=== PATIENT | male | born 1980 | race Caucasian/White ===

== ENCOUNTER 2021-10-23 14:32 | Emergency (ER) | payer MEDICAID, OTHER ==
[~2021-10-23] VITALS: Ht 182.9 cm; Wt 99.8 kg
[2021-10-23 17:02] VITALS: BP 146/95
== END 2021-10-23 17:04 | disposition home or self-care (01) ==
LOC: ER 14:32
DX: S93.401A Sprain of unspecified ligament of right ankle, initial encounter (principal); X58.XXXA Exposure to other specified factors, initial encounter; Y93.89 Activity, other specified; Y92.89 Other specified places as the place of occurrence of the external cause; Y99.8 Other external cause status
CPT/HCPCS: 73610

== ENCOUNTER 2022-04-21 16:15 | Emergency (ER) | payer MEDICAID ==
[~2022-04-21] VITALS: Ht 182.9 cm; Wt 92.1 kg
[2022-04-21] MEDS ORDERED: cefTRIAXone SOD 1,000 MG VL IM ONE (19:15)
[2022-04-21] MEDS ORDERED: KETOROLAC TROMETH 30 MG/ML 1ML VIAL IM ONE (19:15)
[2022-04-21] MEDS ORDERED: IBUP800T26 PO (20:01)
[2022-04-21] MEDS ORDERED: AMOX-277 PO (20:01)
[2022-04-21 21:53] VITALS: BP 146/99
== END 2022-04-21 21:44 | disposition home or self-care (01) ==
LOC: ER 16:20
DX: K04.7 Periapical abscess without sinus (principal)
CPT/HCPCS: 96372; 99284; J0696; J1885

== ENCOUNTER 2022-05-30 23:24 | Emergency (ER) | payer MEDICAID ==
[~2022-05-30] VITALS: Ht 182.9 cm; Wt 94.3 kg
[~2022-05-30 23:24] MED LIST: AMOX-277 PO; IBUP800T26 PO
[2022-05-31 04:26] VITALS: BP 118/87
[2022-05-31] MEDS ORDERED: KETOROLAC TROMETH 60MG/2ML VIAL IM ONE (04:45)
== END 2022-05-31 05:04 | disposition home or self-care (01) ==
LOC: ER 23:24
DX: M25.571 Pain in right ankle and joints of right foot (principal)
CPT/HCPCS: 96372; 99283; J1885

== ENCOUNTER 2022-08-25 04:23 | Emergency (ER) | payer MEDICAID ==
[~2022-08-25] VITALS: Ht 182.9 cm; Wt 81.8 kg
[2022-08-25 04:31] VITALS: BP 133/89
[2022-08-25] MEDS ORDERED: DOXY-286 PO ×4 (04:53→04:54)
[2022-08-25] MEDS ORDERED: PRED20TA2 PO ×3 (04:53→04:54)
[2022-08-25] MEDS ORDERED: AZITTAB PO (05:08)
== END 2022-08-25 05:26 | disposition home or self-care (01) ==
LOC: ER 04:23
DX: J20.9 Acute bronchitis, unspecified (principal); F17.210 Nicotine dependence, cigarettes, uncomplicated; F12.10 Cannabis abuse, uncomplicated
CPT/HCPCS: 71045

== ENCOUNTER 2023-06-20 15:08 | Emergency (ER) | payer MEDICAID ==
[~2023-06-20] VITALS: Ht 182.9 cm; Wt 98.3 kg
[~2023-06-20 15:08] MED LIST changes: -AMOX-277 PO; +AMOX875T4 PO; +AZITTAB PO; +IBUP-1455 PO; -IBUP800T26 PO; +PRED20TA2 PO
[2023-06-20 17:10] LABS: Basophils # (auto) 0.1 10 ^3/uL (0-0.2); Basophils % (auto) 0.5 % (0.0-2.0); Eosinophils # (auto) 0.3 10 ^3/uL (0-0.8); Eosinophils % (auto) 3.2 % (0.0-7.0); Hematocrit 41.8 % (41.0-53.0); Lymphocytes # (auto) 3.1 10 ^3/uL (0.4-5.4); Lymphocytes % (auto) 31.9 % (10.0-50.0); Mean Corpuscular Hemoglobin 31.1 pg (28.0-32.0); Mean Corpuscular Hgb Conc. 33.5 g/dL (32.0-36.0); Mean Corpuscular Volume 92.8 fL (80.0-100.0); Monocytes # (auto) 1.5 10 ^3/uL (0-1.3); Monocytes % (auto) 16.1 % (0.0-12.0); Neutrophils # (auto) 4.6 10 ^3/uL (1.6-8.6); Neutrophils % (auto) 48.3 % (37.0-80.0); Nucleated Red Blood Cells % 0.1 %; Red Cell Distribution Width 13.5 % (11.8-14.3); White Blood Cell 9.6 10^3/uL (4.4-10.8)
[2023-06-20 17:29] LABS: Alanine Aminotransferase 85 U/L (7-40); Albumin 4.5 g/dL (3.2-4.8); Alkaline Phosphatase 117 U/L (46-116); Anion Gap 3 (5-15); Aspartate Aminotransferase 62 U/L (13-40); BUN/Creatinine Ratio 11.9 (10.0-20.0); Bilirubin, Total 0.4 mg/dL (0.2-1.0); Blood Urea Nitrogen 10 mg/dL (9-23); Calcium 9.2 mg/dL (8.7-10.4); Carbon Dioxide 32 mmol/L (20-30); Chloride 102 mmol/L (98-107); Glucose 94 mg/dL (74-106); Potassium 4.2 mmol/L (3.5-5.1); Sodium 137 mmol/L (136-145); Total Protein 8.7 g/dL (5.7-8.2)
[2023-06-20] MEDS ORDERED: FLUCONAZOLE 200MG/100ML 100 ML IV ONE (17:30)
[2023-06-20] MEDS ORDERED: cefTRIAXone 1GM/50ML D5W 50 ML IV ONE (17:30)
[2023-06-20] MEDS ORDERED: SODIUM CHLORIDE 0.9% 1,000 ML IV ONE (17:30)
[2023-06-20 18:24] LABS: Urine Bacteria NONE SEEN /hpf (None Seen); Urine Blood Negative /uL (Negative); Urine Clarity Clear (Clear); Urine Color Yellow (Yellow); Urine Mucus FEW (None Seen); Urine Protein, UAD Negative (Negative); Urine Specific Gravity 1.025 (1.001-1.035); Urine Urobilinogen Normal (Negative); Urine WBC <1 /hpf (0 - 3); Urine pH 5.5 (5.0-8.0)
[2023-06-20] MEDS ORDERED: [UNRECOGNIZED DRUG - CODE] EXT (19:17)
[2023-06-20] MEDS ORDERED: FLUC200T PO (19:17)
[2023-06-20] MEDS ORDERED: DOXY100C PO (19:17)
[2023-06-20 22:16] VITALS: BP 134/96; PULSE 90; RESP 18; TEMP 98.5; O2SAT 96
== END 2023-06-20 23:28 | disposition home or self-care (01) ==
LOC: ER 15:08
DX: L03.116 Cellulitis of left lower limb (principal); L03.115 Cellulitis of right lower limb; B35.3 Tinea pedis; R74.8 Abnormal levels of other serum enzymes; F17.210 Nicotine dependence, cigarettes, uncomplicated; F12.10 Cannabis abuse, uncomplicated
CPT/HCPCS: 36415; 80053; 81001; 85025; 96365; 96368; 99284; J0696; J1450

== ENCOUNTER 2023-08-08 16:37 | Inpatient (IN) | payer MEDICAID ==
[~2023-08-08] VITALS: Ht 182.9 cm; Wt 95.9 kg
[~2023-08-08 16:37] MED LIST changes: +DOXY100C PO; +FLUC200T PO; +[UNRECOGNIZED DRUG - CODE] EXT
[2023-08-08] MEDS: VANCOMYCIN 1GM/200ML 200 ML IV ONE (17:30)
[2023-08-08 20:32] LABS: Basophils # (auto) 0.1 10 ^3/uL (0-0.2); Basophils % (auto) 0.5 % (0.0-2.0); Eosinophils # (auto) 0.3 10 ^3/uL (0-0.8); Eosinophils % (auto) 2.8 % (0.0-7.0); Hematocrit 45.1 % (41.0-53.0); Hemoglobin 14.8 g/dL (13.5-17.5); Lymphocytes # (auto) 3.3 10 ^3/uL (0.4-5.4); Lymphocytes % (auto) 32.2 % (10.0-50.0); Mean Corpuscular Hemoglobin 30.6 pg (28.0-32.0); Mean Corpuscular Hgb Conc. 32.8 g/dL (32.0-36.0); Mean Corpuscular Volume 93.5 fL (80.0-100.0); Monocytes # (auto) 1.2 10 ^3/uL (0-1.3); Monocytes % (auto) 11.7 % (0.0-12.0); Neutrophils # (auto) 5.4 10 ^3/uL (1.6-8.6); Neutrophils % (auto) 52.8 % (37.0-80.0); Nucleated Red Blood Cells % 0.1 %; Red Blood Cells 4.82 10^6/uL (4.5-5.90); Red Cell Distribution Width 13.3 % (11.8-14.3); White Blood Cell 10.1 10^3/uL (4.4-10.8)
[2023-08-08 20:40] LABS: Chloride 105 mmol/L (98-107); Potassium 4.4 mmol/L (3.5-5.1); Sodium 138 mmol/L (136-145)
[2023-08-08 20:41] LABS: Anion Gap 4 (5-15); Carbon Dioxide 29 mmol/L (20-30)
[2023-08-08 20:42] LABS: Calcium 9.1 mg/dL (8.7-10.4)
[2023-08-08 20:47] LABS: BUN/Creatinine Ratio 15.7 (10.0-20.0); Blood Urea Nitrogen 14 mg/dL (9-23); Glucose 92 mg/dL (74-106)
[2023-08-08] MEDS ORDERED: DOCUSATE SOD 100 MG CAP PO PRN (21:30)
[2023-08-08] MEDS ORDERED: VANCOMYCIN PER PHARMACY 0 MG IV SCH (21:30)
[2023-08-08] MEDS ORDERED: ONDANSETRON HCL 4 MG/2 ML VIAL IV PRN (21:30)
[2023-08-08] MEDS ORDERED: ACETAMINOPHEN 325 MG TAB PO PRN (21:30)
[2023-08-08] MEDS: SODIUM CHLORIDE 0.9% 1,000 ML IV SCH (22:10)
[2023-08-08] MEDS ORDERED: MORPHINE SULFATE INJ 2 MG/ml SYRG IV PRN (22:30)
[2023-08-08] MEDS ORDERED: NITROGLYCERIN 0.4 MG SL TAB SL PRN (22:30)
[2023-08-09 06:55] LABS: Basophils # (auto) 0 10 ^3/uL (0-0.2); Basophils % (auto) 0.5 % (0.0-2.0); Eosinophils # (auto) 0.2 10 ^3/uL (0-0.8); Eosinophils % (auto) 2.3 % (0.0-7.0); Hematocrit 42.6 % (41.0-53.0); Hemoglobin 14.2 g/dL (13.5-17.5); Lymphocytes # (auto) 2.1 10 ^3/uL (0.4-5.4); Lymphocytes % (auto) 23.5 % (10.0-50.0); Mean Corpuscular Hemoglobin 30.7 pg (28.0-32.0); Mean Corpuscular Hgb Conc. 33.4 g/dL (32.0-36.0); Monocytes # (auto) 0.9 10 ^3/uL (0-1.3); Neutrophils # (auto) 5.6 10 ^3/uL (1.6-8.6); Neutrophils % (auto) 63.7 % (37.0-80.0); Nucleated Red Blood Cells % 0.2 %; Red Blood Cells 4.63 10^6/uL (4.5-5.90); Red Cell Distribution Width 13.1 % (11.8-14.3); White Blood Cell 8.8 10^3/uL (4.4-10.8)
[2023-08-09 07:20] LABS: Alanine Aminotransferase 46 U/L (7-40); Alkaline Phosphatase 86 U/L (46-116); Anion Gap 8 (5-15); Aspartate Aminotransferase 51 U/L (13-40); BUN/Creatinine Ratio 14.1 (10.0-20.0); Blood Urea Nitrogen 10 mg/dL (9-23); Carbon Dioxide 23 mmol/L (20-30); Chloride 106 mmol/L (98-107); Glucose 99 mg/dL (74-106); Potassium 3.9 mmol/L (3.5-5.1); Sodium 137 mmol/L (136-145)
[2023-08-09 07:21] LABS: Bilirubin, Total 0.8 mg/dL (0.2-1.0); Total Protein 8.1 g/dL (5.7-8.2)
[2023-08-09 08:32] VITALS: PULSE 75; RESP 18; O2SAT 95
[2023-08-09] MEDS: VANCOMYCIN 1GM/200ML 200 ML IV SCH (09:13)
[2023-08-09] MEDS: ENOXAPARIN SOD 40 MG/0.4 ML SYRINGE SC SCH (10:34)
[2023-08-09] MEDS: MORPHINE SULFATE INJ 2 MG/ml SYRG IV PRN (15:05)
[2023-08-09 15:57] VITALS: BP 143/80; PULSE 99; RESP 17; TEMP 98.6; O2SAT 97
[2023-08-09 16:40] VITALS: BP 143/80; PULSE 99; RESP 17; TEMP 98.6; O2SAT 97
[2023-08-09 20:00] VITALS: PULSE 74; RESP 16; O2SAT 99
[2023-08-09] MEDS: HYDROcodone-ACET 5/325MG TAB PO PRN (22:06)
[2023-08-09 23:00] VITALS: BP 134/87; PULSE 74; RESP 16; TEMP 98.4; O2SAT 99
[2023-08-09 23:08] VITALS: BP 141/93; PULSE 84; RESP 19; TEMP 98.6; O2SAT 98
[2023-08-09] MEDS: LORazepam 2MG/ML-1ML VIAL IV PRN (23:27)
[2023-08-10] MEDS: MELATONIN 5 MG TAB PO ONE (02:11)
[2023-08-10 05:11] VITALS: BP 141/69; PULSE 68; RESP 19; TEMP 98.4; O2SAT 97
[2023-08-10 06:37] LABS: Basophils # (auto) 0 10 ^3/uL (0-0.2); Basophils % (auto) 0.4 % (0.0-2.0); Eosinophils # (auto) 0 10 ^3/uL (0-0.8); Eosinophils % (auto) 0.3 % (0.0-7.0); Hematocrit 42.4 % (41.0-53.0); Hemoglobin 14.4 g/dL (13.5-17.5); Lymphocytes # (auto) 2.2 10 ^3/uL (0.4-5.4); Lymphocytes % (auto) 16.9 % (10.0-50.0); Mean Corpuscular Hemoglobin 31.2 pg (28.0-32.0); Mean Corpuscular Hgb Conc. 33.9 g/dL (32.0-36.0); Monocytes % (auto) 8.1 % (0.0-12.0); Neutrophils # (auto) 9.4 10 ^3/uL (1.6-8.6); Neutrophils % (auto) 74.3 % (37.0-80.0); Red Blood Cells 4.61 10^6/uL (4.5-5.90); Red Cell Distribution Width 12.6 % (11.8-14.3); White Blood Cell 12.7 10^3/uL (4.4-10.8)
[2023-08-10 08:00] VITALS: PULSE 74; RESP 16; O2SAT 99
[2023-08-10 08:54] LABS: Hepatitis B Surface Antigen Negative (Negative)
[2023-08-10 09:19] VITALS: BP 143/87; PULSE 64; RESP 19; TEMP 98.9; O2SAT 97
[2023-08-10 10:10] LABS: Hepatitis C Antibody Positive (Negative)
[2023-08-10] MEDS ORDERED: cefTRIAXone 2GM/50ML D5W 50 ML IV ONE (16:00)
[2023-08-11] MEDS ORDERED: cefTRIAXone 2GM/50ML D5W 50 ML IV SCH (10:00)
== END 2023-08-10 08:30 | disposition left against medical advice (07) | DRG 383 ==
LOC: ER 16:37 → OVERFLOW 22:23 → WEST WING 08-09 15:35
PROVIDERS: ADMIT Nurse Practitioner Family; ATTEND Internal Medicine
DX: L03.116 Cellulitis of left lower limb (principal); F11.10 Opioid abuse, uncomplicated; L03.115 Cellulitis of right lower limb; F17.210 Nicotine dependence, cigarettes, uncomplicated; Z83.3 Family history of diabetes mellitus
CPT/HCPCS: 36415; 73590; 80048; 80053; 80202; 83880; 85025; 86803; 87040; 87340; 93970; G0378

== ENCOUNTER 2024-02-02 14:29 | Emergency (ER) | payer MEDICAID ==
[~2024-02-02] VITALS: Ht 182.9 cm; Wt 89.3 kg
[~2024-02-02 14:29] MED LIST changes: +CEPH500C PO
[2024-02-02 15:07] VITALS: BP 148/118; PULSE 140; RESP 18; O2SAT 96
[2024-02-02] MEDS ORDERED: CLIN1CAP70 PO (18:15)
== END 2024-02-02 20:51 | disposition home or self-care (01) ==
LOC: ER 14:29
DX: L03.116 Cellulitis of left lower limb (principal); L03.115 Cellulitis of right lower limb; F17.210 Nicotine dependence, cigarettes, uncomplicated; F12.10 Cannabis abuse, uncomplicated

== ENCOUNTER 2024-03-11 11:47 | Emergency (ER) | payer MEDICAID ==
[~2024-03-11] VITALS: Ht 185.4 cm; Wt 92.9 kg
[~2024-03-11 11:47] MED LIST changes: +CLIN1CAP70 PO
[2024-03-11 12:41] VITALS: BP 139/97; PULSE 106; RESP 16; TEMP 97.9; O2SAT 98
[2024-03-11] MEDS ORDERED: BACDST PO (12:51)
[2024-03-11] MEDS ORDERED: CEPH500C PO (12:51)
== END 2024-03-11 13:03 | disposition home or self-care (01) ==
LOC: ER 11:47
DX: S91.001D Unspecified open wound, right ankle, subsequent encounter (principal); F17.210 Nicotine dependence, cigarettes, uncomplicated; F12.10 Cannabis abuse, uncomplicated; F11.10 Opioid abuse, uncomplicated; Z76.0 Encounter for issue of repeat prescription; Z48.00 Encounter for change or removal of nonsurgical wound dressing; X58.XXXD Exposure to other specified factors, subsequent encounter